=== PATIENT | female | born 1980 | race Asian ===

== ENCOUNTER 2017-04-10 07:30 | Inpatient (IN) | payer SELFPAY ==
[~2017-04-10] VITALS: Ht 167.6 cm; Wt 91.6 kg
[2017-04-15 12:36] LABS: BILIRUBIN,URINE NEGATIVE (NEGATIVE); BLOOD, URINE NEGATIVE (NEGATIVE); CLARITY/URINE SL HAZY (CLEAR); COLOR,URINE YELLOW (YELLOW); GLUCOSE,URINE NEGATIVE (NEGATIVE); KETONES,URINE NEGATIVE (NEGATIVE); LEUKOCYTE ESTERASE ,URINE 1+ (NEGATIVE); NITRITE, URINE NEGATIVE (NEGATIVE); PROTEIN URINE NEGATIVE (NEGATIVE)
[2017-04-15 12:41] LABS: BASOPHILS % (AUTO) 0.2 % (0.0-2.0); EOSINOPHILS % (AUTO) 0.6 % (0.0-4.0); HEMATOCRIT 33.6 % (36-48); HEMOGLOBIN 11.6 g/dL (12.0-16.0); LYMPHOCYTES # (AUTO) 1.4 K/uL (1.0-5.5); LYMPHOCYTES % (AUTO) 20.2 % (20.5-51.5); MEAN CORPUSCULAR HEMOGLOBIN 33 pg (27-31); MEAN CORPUSCULAR HGB CONC 34 % (32-36); MEAN CORPUSCULAR VOLUME 95 fL (79.0-98.0); MONOCYTES # (AUTO) 0.5 K/uL (0.0-1.0); MONOCYTES % (AUTO) 8.1 % (1.7-9.3); NEUTROPHILS # (AUTO) 4.8 K/uL (1.8-7.7); NEUTROPHILS % (AUTO) 70.9 % (40.0-70.0); PLATELET COUNT (AUTO) 127 K/uL (130-430); RED BLOOD CELL COUNT(AUTO) 3.53 MIL/uL (4.2-6.2); WHITE BLOOD COUNT (AUTO) 6.7 K/uL (4.8-10.8)
[2017-04-15 13:16] LABS: BACTERIA,URINE MODERATE /HPF (None Seen); RBC,URINE 0-3 /HPF (0-3)
[2017-04-15 13:17] LABS: MUCUS,URINE None Seen /LPF (None Seen)
[2017-04-16] MEDS ORDERED: LR 1,000 ML IV SCH ×2 (06:32→07:31)
[2017-04-16] MEDS ORDERED: CEFAZOLIN 2 GM IVPB PREMIX 50 ML IV ONE ×2 (06:45→07:01)
[2017-04-16] MEDS ORDERED: CITRIC ACID/SODIUM CITRATE 30 ML UDC PO ONE (06:45)
[2017-04-16] MEDS ORDERED: MORPHINE SULFATE 10MG/10ML PF AMP EP ONE (07:01)
[2017-04-16] MEDS ORDERED: OXYTOCIN 10 UNIT/ML VIAL IV ONE (07:01)
[2017-04-16] MEDS ORDERED: NS IRRIG SOLN 1000 ML IR ONE (07:01)
[2017-04-16] MEDS ORDERED: LR 1,000 ML IV.SOLN IV ONE (07:01)
[2017-04-16] MEDS ORDERED: BUPIVACAINE /PF 0.75% 10 ML VIAL INJ ONE (07:01)
[2017-04-16] MEDS ORDERED: OXYTOCIN/NORMAL SALINE 1,000 ML IV ONE ×2 (07:35→09:26)
[2017-04-16] MEDS ORDERED: DIPHENHYDRAMINE INJ 50 MG/ML VIAL IVP PRN (07:45)
[2017-04-16] MEDS ORDERED: ANUSOL 1 EA SUPP.RECT (PREPARATION H) RC PRN (07:45)
[2017-04-16] MEDS ORDERED: HYDROmorphone 2 MG/ML VIAL IVP PRN ×2 (07:45)
[2017-04-16] MEDS ORDERED: OXYCODONE/ACETAMINOPHEN 5-325 TABLET PO PRN ×2 (07:45)
[2017-04-16] MEDS ORDERED: MEPERIDINE HCL/PF 25 MG/ML DISP.SYRIN IVP PRN ×2 (07:45)
[2017-04-16] MEDS ORDERED: ONDANSETRON HCL 4 MG/2 ML VIAL IVP PRN ×2 (07:45)
[2017-04-16] MEDS ORDERED: NALBUPHINE HCL 10 MG/ML AMP IVP PRN (07:45)
[2017-04-16] MEDS ORDERED: MEASLES,MUMPS&RUBELLA VACC/PF 12500 UNIT/0.5 ML VIAL SUBQ PRN (07:45)
[2017-04-16] MEDS ORDERED: SIMETHICONE 80 MG TAB.CHEW PO PRN (07:45)
[2017-04-16] MEDS ORDERED: MORPHINE SULFATE 10MG/10ML PF AMP SP SCH (07:45)
[2017-04-16] MEDS ORDERED: KETOROLAC TROMETHAMINE 30 MG VIAL IVP PRN ×2 (07:45)
[2017-04-16] MEDS ORDERED: NALOXONE HCL 0.4 MG/ML AMP (NARCAN) IVP PRN (07:45)
[2017-04-16] MEDS ORDERED: HYDROcodone/ACETAMIN 5-325 MG TAB (NORCO/ VICODIN) PO PRN (07:45)
[2017-04-16] MEDS ORDERED: HYDROmorphone 1 MG INJ. 1 MG/ML AMPUL IVP PRN ×2 (07:45)
[2017-04-16] MEDS ORDERED: DOCUSATE SODIUM 100 MG CAPSULE PO PRN (07:45)
[2017-04-16] MEDS ORDERED: LANOLIN 7 GM OINT. TP PRN (07:45)
[2017-04-16 13:38] VITALS: BP_SYST 105
[2017-04-16] MEDS: CEFAZOLIN 1 GM IVPB PREMIX 50 ML IV SCH ×2 (15:16→21:03)
[2017-04-16] MEDS ORDERED: TEMAZEPAM 15 MG CAPSULE PO PRN (21:00)
[2017-04-17] MEDS: CEFAZOLIN 1 GM IVPB PREMIX 50 ML IV SCH (02:39)
[2017-04-17] MEDS: IBUPROFEN 600 MG TABLET PO SCH ×4 (06:16→17:48)
[2017-04-17 07:15] LABS: BASOPHILS % (AUTO) 0.1 % (0.0-2.0); EOSINOPHILS # (AUTO) 0.1 K/uL (0.0-0.4); EOSINOPHILS % (AUTO) 0.9 % (0.0-4.0); HEMATOCRIT 31.2 % (36-48); HEMOGLOBIN 10.4 g/dL (12.0-16.0); LYMPHOCYTES # (AUTO) 1.2 K/uL (1.0-5.5); LYMPHOCYTES % (AUTO) 14.5 % (20.5-51.5); MEAN CORPUSCULAR HEMOGLOBIN 32 pg (27-31); MEAN CORPUSCULAR HGB CONC 34 % (32-36); MEAN CORPUSCULAR VOLUME 96 fL (79.0-98.0); MONOCYTES # (AUTO) 0.4 K/uL (0.0-1.0); MONOCYTES % (AUTO) 4.5 % (1.7-9.3); NEUTROPHILS # (AUTO) 6.3 K/uL (1.8-7.7); PLATELET COUNT (AUTO) 120 K/uL (130-430); RED BLOOD CELL COUNT(AUTO) 3.25 MIL/uL (4.2-6.2); RED CELL DISTRIBUTION WIDTH 13.6 % (9.0-15.0)
[2017-04-18] MEDS: IBUPROFEN 600 MG TABLET PO SCH ×3 (00:30→17:51)
[2017-04-19] MEDS: IBUPROFEN 600 MG TABLET PO SCH ×2 (04:20→06:00)
== END 2017-04-19 10:15 | disposition home or self-care (01) | DRG 766 ==
LOC: SPU 04-16 05:15
PROVIDERS: ADMIT Obstetrics & Gynecology; ATTEND Obstetrics & Gynecology
PROC: 3E0234Z Introduction of Serum, Toxoid and Vaccine into Muscle, Percutaneous Approach (ICD-10-PCS; 2017-04-16)
PROC: 4A0HXCZ Measurement of Products of Conception, Cardiac Rate, External Approach (ICD-10-PCS; 2017-04-16)
PROC: 10D00Z1 Extraction of Products of Conception, Low, Open Approach (ICD-10-PCS; principal; 2017-04-16 07:30)
DX: O34.219 Maternal care for unspecified type scar from previous cesarean delivery (principal); O24.420 Gestational diabetes mellitus in childbirth, diet controlled; Z3A.39 39 weeks gestation of pregnancy; O09.523 Supervision of elderly multigravida, third trimester; Z37.0 Single live birth; Z23 Encounter for immunization
CPT/HCPCS: 36415; 81000-TC; 82962; 85025; 86886; 86900; 86901; 87086; 94760; J0690; J2274; J2405; J2590; J3490; J7120